=== PATIENT | female | born 1975 | race Caucasian/White ===

== ENCOUNTER 2016-05-25 16:41 | Emergency (ER) | payer BC ==
[~2016-05-25] VITALS: Wt 95.0 kg
[~2016-05-25 16:41] MED LIST: HYDR-3498 PO; NO MEDS
[2016-05-25] MEDS ORDERED: IBUPROFEN 600 MG TAB PO ONE (17:30)
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
[2016-05-25] MEDS ORDERED: CYCL5TAB PO (18:27)
[2016-05-25] MEDS ORDERED: IBUP-1542 PO (18:27)
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
== END 2016-05-25 18:59 | disposition home or self-care (01) ==
LOC: FTE 16:41
DX: S19.9XXA Unspecified injury of neck, initial encounter (principal); V49.40XA Driver injured in collision with unspecified motor vehicles in traffic accident, initial encounter
CPT/HCPCS: 72040; Z7502; Z7610

== ENCOUNTER 2017-10-22 08:12 | Emergency (ER) | END 2017-10-22 13:35 | disposition home or self-care (01) ==

== ENCOUNTER 2017-10-24 09:07 | Emergency (ER) | END 2017-10-24 11:18 | disposition home or self-care (01) ==